=== PATIENT | female | born 1980 | race Two or more races ===

== ENCOUNTER → 2019-10-12 | Outpatient (CLI) | payer OTHER | END | disposition home or self-care (01) | LOC: PRENATAL 10:00 | DX: O35.3XX1 Maternal care for (suspected) damage to fetus from viral disease in mother, fetus 1 (principal); O99.89 Other specified diseases and conditions complicating pregnancy, childbirth and the puerperium; O09.512 Supervision of elderly primigravida, second trimester; O34.42 Maternal care for other abnormalities of cervix, second trimester ==

== ENCOUNTER → 2019-12-14 | Outpatient (CLI) | payer OTHER | END | disposition home or self-care (01) | LOC: PRENATAL 11-23 08:00 | PROVIDERS: ATTEND Obstetrics & Gynecology Obstetrics | DX: O26.843 Uterine size-date discrepancy, third trimester (principal); O09.513 Supervision of elderly primigravida, third trimester ==

== ENCOUNTER → 2020-01-10 | Outpatient (CLI) | payer OTHER | END | disposition home or self-care (01) | LOC: PRENATAL 08:00 | PROVIDERS: ATTEND Obstetrics & Gynecology Obstetrics | DX: O26.843 Uterine size-date discrepancy, third trimester (principal); O09.513 Supervision of elderly primigravida, third trimester; O36.8131 Decreased fetal movements, third trimester, fetus 1; O99.89 Other specified diseases and conditions complicating pregnancy, childbirth and the puerperium ==